=== PATIENT | female | born 2000 | race Caucasian/White ===

== ENCOUNTER 2021-06-11 12:14 | Emergency (ER) | payer BC, OTHER ==
[2021-06-11] MEDS ORDERED: Sodium Chloride 0.9% 10 ML Syringe FLUSH PRN (12:36)
[2021-06-11] MEDS ORDERED: Lactated Ringers 1,000 ML IV ONE ×2 (12:44→13:53)
[2021-06-11] MEDS ORDERED: diphenhydrAMINE 50 MG/ML SDV IVPUSH ONE (12:44)
[2021-06-11] MEDS ORDERED: Ondansetron 4 MG/2 ML SDV IV ONE (12:44)
[2021-06-11 13:12] LABS: CHLORIDE,CL 104 mmol/L (98-107); SODIUM,NA 138 mmol/L (136-145)
[2021-06-11 13:13] LABS: ANION GAP 17.1 mmol/L (5-15)
== END 2021-06-11 15:05 | disposition home or self-care (01) ==
LOC: VM.ED 12:14
DX: K52.9 Noninfective gastroenteritis and colitis, unspecified (principal); Z88.0 Allergy status to penicillin
CPT/HCPCS: 80053; 81003; 81025; 83690; 83735; 85025; 86140; 96374; 96375; 99284-25; J1200; J2405; J7120